=== PATIENT | female | born 1945 | race Caucasian/White ===

== ENCOUNTER → 2016-03-10 | Outpatient (CLI) | payer MEDICARE, OTHER ==
[~2016-03-10] MED LIST: ACET325T38 PO; ASPI-586 PO; CEFA500C PO; DOCU100C PO; GLUC-113 PO; LISI1TAB6 PO; LOVA10TA PO; RANI150C4 PO
--- NOTE | 2016-03-11 19:34 | Diagnostic Imaging Report ---
DIG ALFONSO BILAT SCREEN W CAD COMPARISON: 01/29/2014 and 12/12/2012. INDICATION: Screening mammography. TECHNIQUE: Digital screening mammography was obtained with a computer-aided detection (CAD) system. FINDINGS: The breasts are almost entirely fatty. Scattered bilateral upper-outer quadrant well-circumscribed isodense subcentimeter masses likely represent intramammary lymph nodes, and are unchanged. No new dominant mass, suspicious microcalcification, or architectural distortion to suggest malignancy. IMPRESSION: Stable mammogram without evidence of malignancy. Followup screening mammogram in 12 months is recommended. ACR BI-RADS Category 2: Benign findings. Result letter will be mailed to the patient. Note: At least 10% of breast cancer is not imaged by mammography. Dictated by: Dictated on workstation # [id number]
== END ==
LOC: RAD 08:24
PROVIDERS: ATTEND Internal Medicine
DX: Z12.31 Encounter for screening mammogram for malignant neoplasm of breast (principal)

== ENCOUNTER 2016-04-17 09:45 | Outpatient (RCR) | payer MEDICARE, OTHER | END 2016-05-08 16:12 | disposition home or self-care (01) | LOC: PT 09:45 | PROVIDERS: ATTEND Internal Medicine | DX: R29.898 Other symptoms and signs involving the musculoskeletal system (principal); Z96.641 Presence of right artificial hip joint | CPT/HCPCS: 97110; 97112; 97140; 97161; G8978; G8979; G8980 ==